=== PATIENT | female | born 2000 | race Caucasian/White ===

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

== ENCOUNTER 2023-08-18 09:35 | Emergency (ER) | payer OTHER ==
[2023-08-18 10:00] VITALS: RESP 18; TEMP 98.3
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
[2023-08-18 11:09] VITALS: BP 109/75
[2023-08-18 11:44] VITALS: PULSE 102
== END 2023-08-18 11:19 | disposition home or self-care (01) ==
LOC: EC 09:35
DX: H53.10 Unspecified subjective visual disturbances (principal); Z88.0 Allergy status to penicillin
CPT/HCPCS: 99283

== ENCOUNTER → 2023-11-16 | Outpatient (CLI) | payer OTHER ==
--- NOTE | 2023-11-16 17:38 | MR ---
EXAMINATION TYPE: MR brain wo con DATE OF EXAM: 11/16/2023 5:20 PM COMPARISON: NONE HISTORY: Dizziness, vertigo, headaches x6 months Multiplanar and multispin-echo imaging of the brain was performed . The ventricles, basal cisterns and sulci overlying the cerebral convexities are within normal limits. There is no evidence for midline shift or mass effect. Acute intracranial hemorrhage or extra-axial collection is not evident. The brain parenchyma reveals no abnormal increased signal. No acute edema is identified. The paranasal sinuses and mastoid air cells are well-aerated. IMPRESSION: Unremarkable MRI of the brain.
== END | disposition home or self-care (01) ==
LOC: RADMRIMAIN 16:29
PROVIDERS: ATTEND Psychiatry & Neurology Clinical Neurophysiology
DX: H81.4 Vertigo of central origin (principal)
CPT/HCPCS: 70551

== ENCOUNTER → 2023-11-20 | Day surgery (SDC) | payer OTHER ==
[2023-11-19 08:53] VITALS: BMI 19.8
[2023-11-20] MEDS: SODIUM CHLORIDE 0.9% 1,000 ML IV SCH (06:30)
[2023-11-20 06:36] VITALS: TEMP 99
[2023-11-20 09:12] VITALS: BP 102/64; PULSE 76; RESP 16
--- NOTE | 2023-11-20 19:15 | P.EPPROC ---
- EP Procedure Note Electrophysiology Procedure Note: Diagnosis Recurrent presyncope Twelve-lead EKG Sinus mechanism normal MA narrow QRS normal ST segments normal QT interval Tilt table test per protocol Baseline blood pressure 125/83 mmHg baseline heart rate 89 beats a minute Patient was tilted upright in angle of 70 degrees per protocol Immediate increase in heart rate up to 114 beats a minute within the first 10 minutes She felt little dizzy She complained of tingling in her hands No evidence for secondary neurocardiogenic phenomena When she was laid supine her heart rate came down to 70 beats minute Impression Normal twelve-lead EKG Orthostatic intolerance No evidence for secondary neurocardiogenic phenomena
--- NOTE | 2023-11-20 19:24 | P.EPPROC ---
- EP Procedure Note Electrophysiology Procedure Note: Diagnosis Recurrent presyncope Twelve-lead EKG Sinus mechanism normal [place] narrow QRS normal ST segments Tilt table test per protocol Baseline blood pressure 112/67 mmHg, pulse rate in the 80s She was tilted upright in angle of 70 degrees per protocol Immediate increase in heart rate In the first 10 minutes her heart rate increased up to 114 beats a minute It remained in the same range The patient complained of being dizzy with tingling in the hands Later she complained of being warm and feeling hot. Her blood pressure dropped to 57/38 mmHg When she was laid supine she felt a lot better Impression Normal twelve-lead EKG Orthostatic intolerance followed by secondary neurocardiogenic phenomena
== END ==
LOC: CATHEP 06:14
PROVIDERS: ATTEND Internal Medicine Clinical Cardiac Electrophysiology
DX: R55 Syncope and collapse (principal); Z88.1 Allergy status to other antibiotic agents; Z88.0 Allergy status to penicillin; Z88.8 Allergy status to other drugs, medicaments and biological substances; Z87.891 Personal history of nicotine dependence
CPT/HCPCS: 84703; 93660